=== PATIENT | male | born 1970 | race Caucasian/White ===

== ENCOUNTER 2018-07-19 13:40 | Emergency (ER) | payer OTHER ==
--- NOTE | 2018-07-19 14:10 | ERPHSYRPT ---
- History of Present Illness Time Seen by Provider: 07/19/18 13:56 Source: patient Exam Limitations: no limitations Physician History: The patient is a 47-year-old male with family complaining that he fell 15 feet while removing a tree stand for deer hunting about 2 hours ago. The tree stand it was a ladder stand that came loose and fell backwards. The patient fell on his feet but hurt his right knee. He has not walked on it since then. He did have ice and naproxen. It is feeling slightly better but is now swollen. He's had no prior injury to that knee. His past medical history significant for hypertension and anxiety. Occurred: this morning Reason for Fall: fell from height Injuries/Pain Location: lower extremity (right knee) Loss of Consciousness: no loss of consciousness Quality: sharpness Severity of Pain-Max: severe Severity of Pain-Current: severe Modifying Factors: Improves With: cold therapy, pain medication (naproxen) Associated Symptoms (Fall): trouble walking Allergies/Adverse Reactions: No Known Drug Allergies Allergy (Unverified 07/19/18 13:57) - Review of Systems Constitutional: No Fever, No Chills Eyes: No Symptoms Ears, Nose, & Throat: No Symptoms Respiratory: No Cough, No Dyspnea Cardiac: No Chest Pain, No Edema, No Syncope Abdominal/Gastrointestinal: No Abdominal Pain, No Nausea, No Vomiting, No Diarrhea Genitourinary Symptoms: No Dysuria Musculoskeletal: Fall, Injury, Joint Pain, Joint Swelling Skin: No Rash Neurological: No Dizziness, No Focal Weakness, No Sensory Changes Psychological: No Symptoms Endocrine: No Symptoms Hematologic/Lymphatic: No Symptoms Immunological/Allergic: No Symptoms All Other Systems: Reviewed and Negative - Nursing Vital Signs Nursing Vital Signs: Initial Vital Signs Temperature 98.3 F 07/19/18 13:47 Pulse Rate 67 07/19/18 13:47 Respiratory Rate 16 07/19/18 13:47 Blood Pressure 141/97 07/19/18 13:47 O2 Sat by Pulse Oximetry 97 07/19/18 13:47 Pain Scale Pain Intensity 5 - [place] Coma Score Best Eye Response ([place]): (4) open spontaneously Best Verbal Response ([place]): (5) oriented Best Motor Response ([place]): (6) obeys commands [place] Total: 15 - Physical Exam General Appearance: no apparent distress, alert Head Injury: no evidence of injury Eye Exam: PERRL/EOMI ENT Exam: airway nml Neck Exam: normal inspection, No tenderness Respiratory/Chest Exam: normal breath sounds, No chest tenderness, No respiratory distress Cardiovascular Exam: normal heart sounds, regular rate/rhythm Gastrointestinal Exam: soft, No tenderness, No distention, No guarding, No ecchymosis Rectal Exam: not done Back Exam: normal inspection, No vertebral tenderness Extremity Exam: joint swelling, limited range of motion, pain with movement ( Examination of the right knee: There is mild effusion and swelling to the inferior aspect in the peripatellar area. There is tenderness also in this region. The patient has limited range of motion secondary to pain of the right knee. There is no joint line tenderness either medially or laterally.), swelling, tenderness Neurologic Exam: oriented x 3, cooperative, sensation nml, No motor deficits Skin Exam: normal color, warm, dry SpO2 Interpretation: normal Oxygen Delivery: Room Air - Radiology Exams Right Knee X-ray Interpretation: Reviewed by me, Teleradiologist Report (Per Dr Carpenter), Displaced Fracture (minimally displaced fracture of lateral right tibial plateau ) Ordered Tests: Active Orders 24 hr Category Date Time Status KNEE (3 VIEWS) Stat Exams 07/19/18 14:26 Taken - Progress Progress: improved Counseled pt/family regarding: rad results - Departure Time of Disposition: 16:25 Departure Disposition: Home Clinical Impression: Closed fracture of lateral portion of right tibial plateau Condition: Stable Critical Care Time: No Referrals: LIOR SIMMS [Primary Care Provider] - Additional Instructions: You have a minimally displaced fracture of the lateral portion of the tibia at the knee joint. You were placed on crutches. You're to use the crutches at all times so that you do not have any weightbearing on your right leg until you are released by your doctor. You're also place in the knee immobilizer. Keep ice on your knee is much as possible. Keep your knee elevated. Take [place] one tablet every 4-6 hours as needed. He may also take naproxen. Follow-up tomorrow at [facility] at [address] [place] [address]. Prescriptions: Hydrocodone Bit/Acetaminophen [[place] 5-325 Tablet] 1 each PO Q4-6HPRN PRN #15 tablet MDD 6 PRN Reason: Pain
[2018-07-19 16:02] VITALS: O2SAT 97
[2018-07-19 16:57] VITALS: BP 142/80; PULSE 74
--- NOTE | 2018-07-19 20:08 | XRAY ---
Indication: Pain following fall. Comparison: None 3 views of the right knee demonstrates minimally depressed fracture involving the lateral tibial plateau with effusion. Suspect tiny displaced suprapatellar fractured osteophyte. Elsewhere mild medial joint space narrowing/spurring, suprapatellar spurring, and posterior fabella. Remaining right knee unremarkable. Comment: Preliminary interpretation was made by [facility]. No critical discrepancy.
== END 2018-07-19 16:57 | disposition home or self-care (01) ==
LOC: ED 13:40
DX: S82.141A Displaced bicondylar fracture of right tibia, initial encounter for closed fracture (principal); W14.XXXA Fall from tree, initial encounter; Y93.89 Activity, other specified
CPT/HCPCS: 73562; 99284; L1830